=== PATIENT | male | born 1975 | race Caucasian/White ===

== ENCOUNTER 2018-10-03 11:58 | Emergency (ER) | payer OTHER ==
[~2018-10-03] VITALS: Ht 182.8 cm; Wt 102.1 kg
[2018-10-03] MEDS ORDERED: TOBRAMYCIN 5 ML5 M1 OPH (12:43)
[2018-10-03] MEDS ORDERED: ACULAR 0.5%3 ML OPH (12:43)
== END 2018-10-03 13:41 | disposition home or self-care (01) ==
LOC: ED 11:58
DX: T15.01XA Foreign body in cornea, right eye, initial encounter (principal); F17.200 Nicotine dependence, unspecified, uncomplicated; X58.XXXA Exposure to other specified factors, initial encounter; Y93.89 Activity, other specified; Y92.098 Other place in other non-institutional residence as the place of occurrence of the external cause; Y99.8 Other external cause status

== ENCOUNTER 2018-12-07 14:49 | Emergency (ER) | payer OTHER ==
[~2018-12-07] VITALS: Ht 182.8 cm; Wt 97.5 kg
[~2018-12-07 14:49] MED LIST: ACULAR 0.5%3 ML OPH; TOBRAMYCIN 5 ML5 M1 OPH
[2018-12-07] MEDS ORDERED: CHLORZOXAZONE500 M2 PO (15:11)
[2018-12-07] MEDS ORDERED: NAPROSYN500 MG PO (15:11)
== END 2018-12-07 15:18 | disposition home or self-care (01) ==
LOC: ED 14:49
DX: M54.41 Lumbago with sciatica, right side (principal); R03.0 Elevated blood-pressure reading, without diagnosis of hypertension

== ENCOUNTER 2019-01-30 15:19 | Emergency (ER) | payer OTHER ==
[~2019-01-30] VITALS: Ht 182.8 cm; Wt 113.4 kg
[~2019-01-30 15:19] MED LIST changes: +CHLORZOXAZONE500 M2 PO; +NAPROSYN500 MG PO
[2019-01-30] MEDS ORDERED: CYCLOBENZAPRINE10 MG PO (17:13)
[2019-01-30] MEDS ORDERED: PREDNISONE50 MG PO (17:13)
[2019-01-30] MEDS ORDERED: NORCO 5-325 TA1 EACH PO (17:13)
== END 2019-01-30 17:25 | disposition home or self-care (01) ==
LOC: ED 15:19
DX: M54.5 Low back pain (principal); M53.3 Sacrococcygeal disorders, not elsewhere classified; F17.200 Nicotine dependence, unspecified, uncomplicated; X50.1XXA Overexertion from prolonged static or awkward postures, initial encounter; Y93.89 Activity, other specified; Y92.89 Other specified places as the place of occurrence of the external cause; Y99.0 Civilian activity done for income or pay

== ENCOUNTER 2019-06-10 19:18 | Emergency (ER) | payer OTHER ==
[~2019-06-10] VITALS: Wt 113.4 kg
--- NOTE | ~2019-06-10 | EKG ---
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
[~2019-06-10 19:18] MED LIST changes: +CYCLOBENZAPRINE10 MG PO; +NORCO 5-325 TA1 EACH PO; +PREDNISONE50 MG PO
[2019-06-10] MEDS ORDERED: ROBAXIN-750750 MG PO ×2 (22:10→22:17)
[2019-06-10] MEDS ORDERED: Motrin,Rufen800 MG PO (22:10)
== END 2019-06-10 22:38 ==
LOC: ED 19:18
DX: S61.011A Laceration without foreign body of right thumb without damage to nail, initial encounter (principal); R07.89 Other chest pain; M54.6 Pain in thoracic spine; M25.50 Pain in unspecified joint; V43.52XA Car driver injured in collision with other type car in traffic accident, initial encounter; Y93.89 Activity, other specified; Y92.413 State road as the place of occurrence of the external cause; Y99.8 Other external cause status

== ENCOUNTER 2019-12-31 13:47 | Emergency (ER) | payer SELFPAY ==
[~2019-12-31] VITALS: Ht 182.8 cm; Wt 113.4 kg
[~2019-12-31 13:47] MED LIST changes: +Motrin,Rufen800 MG PO; +ROBAXIN-750750 MG PO
[2019-12-31 15:21] LABS: BASO % 0.3 % (0.0-1.0); EOS # 0.2 10*3/uL (0.0-0.4); EOS % 3.1 % (1.0-4.0); LYMPH # 2.3 10*3/uL (1.3-4.4); LYMPH % 31.3 % (27.0-41.0); MEAN CELL VOLUME 94.9 fl (80.0-94.0); MEAN CORPUSCULAR HGB 31.6 pg (27.0-31.0); MEAN CORPUSCULAR HGB CONC 33.3 g/dl (33.0-37.0); MEAN PLATELET VOLUME 10.4 fl (9.6-12.3); MONO # 0.8 10*3/uL (0.1-1.0); MONO % 10.6 % (3.0-9.0); NEUT % 54.2 % (47.0-73.0); PLATELET COUNT AUTOMATED 168 10*3/uL (130-400); RED BLOOD COUNT 4.74 10*6/uL (4.50-5.90); RED CELL DISTRI WIDTH 13.3 % (0-14.5); WHITE BLOOD COUNT 7.4 10*3/uL (4.8-10.8)
[2019-12-31 15:35] LABS: ACT PARTIAL THROMBO TIME 29.6 SECONDS (20.0-32.1)
[2019-12-31 15:39] LABS: ALBUMIN 3.7 gm/dl (3.1-4.5); ALKALINE PHOSPHATASE 61 U/L (45-117); BUN 13 mg/dl (7-24); CHLORIDE 107 mmol/L (98-107); CREATININE 1.13 mg/dL (0.70-1.30); LIPASE 144 U/L (73-393); POTASSIUM 3.9 mmol/L (3.5-5.1); SGOT/AST 19 IU/L (3-35); SGPT/ALT 32 U/L (12-78); SODIUM 138 mmol/L (136-145)
[2019-12-31 15:46] LABS: TROPONIN I < 0.015 ng/ml (<0.045)
[2019-12-31] MEDS ORDERED: TAMIFLU 75MG CA75 MG PO (17:39)
== END 2019-12-31 17:47 | disposition home or self-care (01) ==
LOC: ED 13:47
PROVIDERS: Nurse Practitioner Family
DX: J10.1 Influenza due to other identified influenza virus with other respiratory manifestations (principal); R11.2 Nausea with vomiting, unspecified; R19.7 Diarrhea, unspecified; R42 Dizziness and giddiness

== ENCOUNTER → 2024-08-16 | Outpatient (CLI) | payer BC ==
[~2024-08-16] MED LIST changes: +TAMIFLU 75MG CA75 MG PO
[2024-08-16 11:53] LABS: BASO % 0.4 % (0.0-1.0); EOS # 0.2 10*3/uL (0.0-0.4); EOS % 3.2 % (1.0-4.0); HEMATOCRIT 44.1 % (42.0-52.0); LYMPH % 26.4 % (27.0-41.0); MEAN CELL VOLUME 90.4 fl (80.0-94.0); MEAN CORPUSCULAR HGB CONC 35.4 g/dl (33.0-37.0); MONO # 0.6 10*3/uL (0.1-1.0); MONO % 7.6 % (3.0-9.0); NEUT # 4.7 10*3/uL (2.3-7.9); NEUT % 62.1 % (47.0-73.0); PLATELET COUNT AUTOMATED 206 10*3/uL (130-400); RED BLOOD COUNT 4.88 10*6/uL (4.50-5.90); RED CELL DISTRI WIDTH 11.6 % (0-14.5); WHITE BLOOD COUNT 7.5 10*3/uL (4.8-10.8)
[2024-08-16 12:19] LABS: ALKALINE PHOSPHATASE 71 U/L (46-116); BUN 9 mg/dl (9-23); CHLORIDE 104 mmol/L (98-107); CHOLESTEROL 145 mg/dL (<200); FREE T4 1.19 ng/dl (0.89-1.76); LDL CHOLESTEROL 64 mg/dL (9-159); POTASSIUM 3.8 mmol/L (3.4-5.1); SGPT/ALT 33 U/L (5-49); TOTAL PROTEIN 7.1 gm/dL (6.0-8.0); TRIGLYCERIDES 240 mg/dl (<150)
[2024-08-16 12:38] LABS: VITAMIN D, 25-HYDROXY 34.2 ng/mL (30-100)
== END | disposition home or self-care (01) ==
LOC: LAB 01:11 → US 10:30 → LAB 10:30
PROVIDERS: ATTEND Internal Medicine
DX: Z13.21 Encounter for screening for nutritional disorder (principal); Z13.1 Encounter for screening for diabetes mellitus; Z13.0 Encounter for screening for diseases of the blood and blood-forming organs and certain disorders involving the immune mechanism; Z13.220 Encounter for screening for lipoid disorders; Z13.228 Encounter for screening for other metabolic disorders; Z13.6 Encounter for screening for cardiovascular disorders; Z13.89 Encounter for screening for other disorder; D51.9 Vitamin B12 deficiency anemia, unspecified; E55.9 Vitamin D deficiency, unspecified; I87.2 Venous insufficiency (chronic) (peripheral); M25.562 Pain in left knee

== ENCOUNTER → 2024-10-24 | Outpatient (CLI) | payer BC | END | disposition home or self-care (01) | LOC: RAD 00:56 | PROVIDERS: ATTEND Internal Medicine | DX: M25.511 Pain in right shoulder (principal) ==

== ENCOUNTER → 2025-05-22 | Day surgery (SDC) | payer BC ==
[2025-05-20 08:18] LABS: BUN 14 mg/dl (9-23)
[2025-05-22] VITALS (9 sets, daily range): BP systolic 125–151; BP diastolic 87–100
[~2025-05-22] VITALS: Ht 182.8 cm; Wt 108.9 kg
[~2025-05-22] MED LIST changes: +AMLODIPINE BESYL5 MG PO; +LIPITOR10 MG PO; +Lidocaine Hydrochloride 30 ML VIAL ONE; +METFORMIN HYDR500 MG PO; +VIT D3; +VITAMIN D325 MCG PO; +ceFAZolin sodium/sodium chlor 20 ML IV ONE
== END | disposition home or self-care (01) ==
LOC: SDC 05-20 03:57
PROVIDERS: ATTEND Orthopaedic Surgery
DX: G56.03 Carpal tunnel syndrome, bilateral upper limbs (principal); M79.7 Fibromyalgia; F17.210 Nicotine dependence, cigarettes, uncomplicated; I10 Essential (primary) hypertension; E78.00 Pure hypercholesterolemia, unspecified; E11.9 Type 2 diabetes mellitus without complications; Z98.890 Other specified postprocedural states; Z85.47 Personal history of malignant neoplasm of testis

== ENCOUNTER → 2025-10-01 | Outpatient (CLI) | payer BC ==
[~2025-10-01] MED LIST changes: -Lidocaine Hydrochloride 30 ML VIAL ONE; -ceFAZolin sodium/sodium chlor 20 ML IV ONE
== END | disposition home or self-care (01) ==
LOC: RAD 02:59
PROVIDERS: ATTEND Internal Medicine
DX: M25.511 Pain in right shoulder (principal)